=== PATIENT | male | born 1965 | race Caucasian/White ===

== ENCOUNTER 2017-11-20 12:06 | Inpatient (IN) | payer BC, OTHER ==
[~2017-11-20] VITALS: Ht 175.3 cm; Wt 83.0 kg
--- NOTE | 2017-11-20 13:00 | NUR ---
PRE ADMISSION Patient at intake office, 52 year old male, appears intoxicated, noted with flushed skin and smell of alcohol on breath. bp: 125/75 hr: 109, t: 98.4, r: 16 o2 sat: 99% room air. Patient is verbally responsive and able to make needs known, is alert and oriented x4. Denies any allergies. Reports he is here to detox off of alcohol. Reports consuming vodka 750ml daily for the past month, last consumed 750ml of vodka on 11/20/2016 beginning boot trimmer. Denies any history of seizures. Denies any past medical history. Patient was educated regarding unit policies and procedures with good verbal understanding.
--- NOTE | 2017-11-20 13:23 | NUR ---
ADMISSION Patient arrived to [facility] unit at 1323, patient noted with steady gait. Patients body search completed by male intake staff, no contraband found. Body assessment completed by staff nurse, patient skin is intact, noted with bruise on right rib cage area approximately 2cmx 1cm. Per patient he fell down yesterday and hurt himself. Patients skin is intact, no breakdown was noted on body. Patient is 5 feet 9 inches tall and weighs 183 lbs on standing scale. Patient was oriented to unit and to room, education regarding call light use was provided with good verbal understanding. Patients fall and seizure precautions were in place and to be observed at all times. patient denies any drug or food allergies. Patient currently is intoxicated, appears flushed and has alcohol breath, Patient reports substance use of: etoh. Reports began drinking alcohol since the age of 12. Recently patient reports he relapsed one month ago. since then has been consuming 750ml of vodka on a daily basis for one month, last drank was 45 minutes prior to admission, reports since the morning consumed 750ml of vodka. patient reports also "occasionally" smoking marijuana, last smoked 2 days ago, unknown amount. Patient reports his longest period of sobriety was for 8 months some time in 2017. Reports treatment history of: [facility] for 60 days 3 months ago. Upon leaving [facility] in [place], patient remained sober for 30 days (September 2017-October 2016)then relapsed 30 days ago. Patient did not bring any home medications with him but reports he has been taking: Effexor XR 75mg daily for anxiety. Patient denies any pre existing medical or psychiatric conditions. Patient denies any history of seizures. Patient reports his primary care physician is located in [facility], Dr. Engle. Patients pupils are equal and reactive to light, 3mm, patient wears glasses. Patient abdomen is soft and non distended, bowel sounds heard in all quadrants. Patients respirations are even and unlabored, no SOB, lungs clear upon auscultation. Patient currently presenting with: tremors, sweats, anxiety, agitation with admitting ciwa score of: 7. Patient was seen and examined by Dr. Thomas, admitting orders were in put. Safety measures in place. call light with in reach. will continue to monitor closely.
[2017-11-20] MEDS ORDERED: ONDANSETRON ODT 4 MG TAB.RAPDIS SL PRN (13:45)
[2017-11-20] MEDS ORDERED: LORAZEPAM 2 MG/1 ML VIAL IM PRN (13:45)
[2017-11-20] MEDS ORDERED: MAGNESIUM HYDROXIDE 30 ML LIQUID UDC PO PRN (13:45)
[2017-11-20] MEDS ORDERED: LORAZEPAM 1 MG TABLET PO PRN ×2 (13:45)
[2017-11-20] MEDS ORDERED: IBUPROFEN 400 MG TABLET PO PRN (13:45)
[2017-11-20] MEDS ORDERED: ACETAMINOPHEN 325 MG TABLET PO PRN (13:45)
[2017-11-20] MEDS ORDERED: DICYCLOMINE HCL 20 MG TABLET PO PRN (13:45)
[2017-11-20] MEDS ORDERED: LOPERAMIDE HCL 2 MG CAPSULE PO PRN ×2 (13:45)
[2017-11-20] MEDS ORDERED: MAG HYDROX/AL HYDROX/SIMETH 30 ML LIQUID UDC PO PRN (13:45)
[2017-11-20] MEDS ORDERED: ONDANSETRON 4 MG/2 ML VIAL IM PRN (13:45)
[2017-11-20] MEDS ORDERED: MIRALAX 17 GM POWD.PACK PO PRN (13:45)
[2017-11-20] MEDS ORDERED: VENL75CA56 PO (14:42)
[2017-11-20 14:46] LABS: *AMPHETAMINE, URINE NEGATIVE (NEGATIVE); *BARBITURATE, URINE NEGATIVE (NEGATIVE); *CANNABINOID, URINE POSITIVE (NEGATIVE); *COCCAINE, URINE NEGATIVE (NEGATIVE); *OPIATE, URINE NEGATIVE (NEGATIVE); *PHENCYCLIDINE SCREEN,URINE NEGATIVE (NEGATIVE)
--- NOTE | 2017-11-20 15:00 | NUR ---
+ UDS BZO patient urine drug screen positive for benzodiazepine. Per patient reported that he took a quarter of unknown strength of possibly Xanax this morning. Per patient it was a one time thing and does not that any benzodiazepines. MD aware.
[2017-11-20] MEDS ORDERED: THIAMINE HCL 200 MG/2 ML VIAL IM ONE (15:28)
[2017-11-20 15:30] LABS: BASOPHILS % (AUTO) 0.9 % (0.0-2.0); EOSINOPHILS # (AUTO) 0.2 K/uL (0.0-0.7); EOSINOPHILS % (AUTO) 3.8 % (0.0-7.0); HEMATOCRIT 40.6 % (36.7-47.1); HEMOGLOBIN 13.7 g/dL (12.5-16.3); LYMPHOCYTES # (AUTO) 1.7 K/uL (20.0-40.0); LYMPHOCYTES % (AUTO) 36.1 % (20.5-51.5); MEAN CORPUSCULAR HEMOGLOBIN 30.2 uug (23.8-33.4); MEAN CORPUSCULAR HGB CONC 34 g/dL (32.5-36.3); MEAN CORPUSCULAR VOLUME 89.1 fL (73.0-96.2); MONOCYTES # (AUTO) 0.5 K/uL (2.0-10.0); NEUTROPHILS # (AUTO) 2.3 K/uL (1.8-8.9); NEUTROPHILS % (AUTO) 49.2 % (38.5-71.5); PLATELET COUNT (AUTO) 139 K/uL (152-348); RED BLOOD CELL COUNT(AUTO) 4.55 MIL/uL (4.06-5.63); WHITE BLOOD COUNT (AUTO) 4.8 K/uL (3.6-10.2)
[2017-11-20 15:37] LABS: BILIRUBIN,TOTAL 0.3 mg/dL (0.2-1.0); CREATININE 0.9 mg/dL (0.6-1.3); MAGNESIUM 1.7 mg/dL (1.8-2.4); POTASSIUM 3.6 mmol/L (3.5-5.1); TOTAL PROTEIN, SERUM 6.8 g/dL (6.4-8.2)
[2017-11-20 16:09] VITALS: BP 123/75
[2017-11-20] MEDS: VENLAFAXINE XR 75 MG CAP.SR.24H PO SCH (16:12)
[2017-11-20] MEDS: LORAZEPAM 1 MG TABLET PO SCH ×2 (16:12→21:19)
[2017-11-20] MEDS ORDERED: MAGNESIUM OXIDE 400 MG TABLET PO ONE (16:45)
--- NOTE | 2017-11-20 18:59 | NUR ---
END OF SHIFT Patient alert and oriented x4, compliant with plan of care. Admitted during shift at 1323, continues under very close observation with admitting Dx: etoh withdrawal. Patient presenting with: tremors, diaphoresis, clammy skin, anxiety, and agitation, current ciwa score of: 12. Noted with worried mood, and flat affect. Administered vitamin b1 injection as ordered. Replaced magnesium as per MD orders. Provided with calm and quiet environment. Educated patient on medication regimen. Encouraged increase fluid intake, food preferences. Fall and seizure precautions observed and in place. Patient endorsed to salesperson surgical appliances nurse, all pertinent information discussed.
--- NOTE | 2017-11-20 19:15 | NUR ---
START OF SHIFT NOTE : Pt is a 52 y/o male admitted to [facility] for ETOH/VODKA withdrawal on 11/19/2017, pt. also use Meth and ETOH occasionally; Pt. will be placed 4 day Ativan taper on 11/21/2017 , he has one time Ativan 2mg PO dose in the evening. CIWA=12 at 16:00, No PRN given during a day shift. Pt. appears pale, diaphoretic, visible tremor, anxious with a sad face expression. He complains of appetite loss, insomnia, difficulty falling asleep, increased level of anxiety, 6/10. Safety measures in place : bed on lowest position with side rails x2 up for safety, call light within reach. Will continue to monitor closely and offer help.
[2017-11-20 20:00] VITALS: BP 137/84
--- NOTE | 2017-11-20 21:00 | NUR ---
PRN BENADRYL Pt. complains of insomnia. PRN BENADRYL given as ordered. Safety measures in place : bed on lowest position with side rails x2 up for safety, call light within reach. Will continue to monitor closely and offer help.
[2017-11-20] MEDS: diphenhydrAMINE 50 MG CAPSULE PO PRN (21:19)
--- NOTE | 2017-11-20 22:00 | NUR ---
RE-ASSESSMENT WALDEMAR Pt. is sleeping, RR=16 , unlabored and even. Safety measures in place : bed on lowest position with side rails x2 up for safety, call light within reach. Will continue to monitor closely and offer help.
[2017-11-21 04:00] VITALS: BP 145/91
--- NOTE | 2017-11-21 06:29 | NUR ---
END OF SHIFT NOTE : Pt is a 52 y/o male admitted to [facility] for ETOH/VODKA withdrawal on 11/19/2017, pt. also use Meth and ETOH occasionally; Pt. will be placed 4 day Ativan taper on 11/21/2017 , Pt. is compliant with a TX plan, PRN given during shift supervisor melting : BENADRYL . CIWA taken when pt. was awake, last CIWA= 5-6 at 04:00. Hyhdbn=431 , voided x2 , slept=11 hours. Safety measures in place : bed on lowest position with side rails x2 up for safety, call light within reach. Will continue to monitor closely and offer help.
--- NOTE | 2017-11-21 07:30 | NUR ---
START OF SHIFT Pt 52 y/o male admitted for etoh withdrawal. Pt received in room on bed with eyes closed resting, but easily arousable to name. Pt alert and oriented to name, place, and time. Perrla. Skin warm and moist to touch. Respirations even and unlabored. Bilateral hand gross tremors noted. Pt with perspiration noted on face. It was reported that pt slept for 11 hours last night. Bed on lowest position with side rails x2 up for safety. Call light within reach. No distress noted at this time.
[2017-11-21 08:00] VITALS: BP 150/96
[2017-11-21] MEDS: FOLIC ACID 1 MG TABLET PO SCH (08:28)
[2017-11-21] MEDS: THIAMINE HCL 100 MG TABLET PO SCH (08:28)
[2017-11-21] MEDS: MULTIVITAMINS,THERAPEUTIC TABLET PO SCH (08:28)
[2017-11-21] MEDS: CLONIDINE HCL 0.1 MG TABLET PO PRN (08:28)
[2017-11-21] MEDS: VENLAFAXINE XR 75 MG CAP.SR.24H PO SCH (08:28)
[2017-11-21] MEDS: LORAZEPAM 1 MG TABLET PO SCH ×3 (08:28→21:55)
--- NOTE | 2017-11-21 08:28 | NUR ---
PRN Pt with er=464/92. Catapres po prn per MD order given and tolerated well.
[2017-11-21] MEDS ORDERED: INFLUENZA VACCINE 2017-2018 0.5 ML DISP.SYRIN IM ONE (09:00)
[2017-11-21] MEDS ORDERED: PNEUMOCOCCAL 23-VAL P-SAC VAC 0.5 ML VIAL IM ONE (09:00)
[2017-11-21] MEDS ORDERED: TUBERCULIN,PURIF.PROT.DERIV. 5 TU/0.1 ML TEST ID ONE (09:00)
--- NOTE | 2017-11-21 09:28 | NUR ---
PRN EVAL pt jn=391/88
[2017-11-21 12:00] VITALS: BP 148/89
[2017-11-21 12:09] LABS: HEPATITIS B SURFACE AG Negative (Negative)
--- NOTE | 2017-11-21 13:00 | NUR ---
BP Pt with ql=698/89. MD aware. Addendum: 11/21/17 at 1727 by HIGINIO FLORES RN MD aware with new order for amlodipine po per MD order.
[2017-11-21] MEDS ORDERED: hydrALAZINE HCL 50 MG TABLET PO PRN (13:30)
[2017-11-21] MEDS: AMLODIPINE 5 MG TABLET PO SCH (14:16)
[2017-11-21 16:00] VITALS: BP 124/79
--- NOTE | 2017-11-21 19:10 | NUR ---
END OF SHIFT Pt 52 y/o male admitted for medically supervised withdrawal. Pt appears disheveled and unkempt. Pt alert and oriented to name, place, and time. Perrla. Skin warm and moist to touch. Respirations even and unlabored. Bilateral hand tremors noted throughout the day. Pt with sad affect noted. CIWA= 10@ 0800, 9@1200, and 9@1600. Pt observed isolative to room throughout the day and with minimal peer interaction noted. Pt did attend group activity. Pt was seen by MD today. Pt is on a 4 day ativan taper and is currently on day 2. Pt medication compliant and tolerated well. No ASE noted. Pt was given catapres po prn per MD order this morning for ji=742/96, effective iq=691/90. Bed on lowest position with side rails x 2 up for safety. Call light within reach. No distress noted at this time.
--- NOTE | 2017-11-21 19:15 | NUR ---
START OF SHIFT NOTE : Pt is a 52 y/o male admitted to [facility] for ETOH/VODKA withdrawal on 11/19/2017, pt. also use Meth and ETOH occasionally; Pt. will be placed 4 day Ativan taper on 11/21/2017 , he has one time Ativan 2mg PO dose in the evening. CIWA=12 at 16:00, PRN Catapres given during a day shift. Pt. appears pale, visible tremor, anxious. He complains of appetite loss, difficulty falling asleep, increased level of anxiety, 4/10, insomnia. Safety measures in place : bed on lowest position with side rails x2 up for safety, call light within reach. Will continue to monitor closely and offer help.
[2017-11-21 20:00] VITALS: BP 114/75
[2017-11-21] MEDS: GABAPENTIN 100 MG CAPSULE PO SCH (21:55)
[2017-11-21] MEDS: diphenhydrAMINE 50 MG CAPSULE PO PRN (21:55)
--- NOTE | 2017-11-22 06:15 | NUR ---
END OF SHIFT NOTE : Pt is a 52 y/o male admitted to [facility] for ETOH/VODKA withdrawal on 11/19/2017, pt. also use Meth and ETOH occasionally; Pt. placed 4 day Ativan taper on 11/21/2017 , Pt. is compliant with a TX plan, PRN given during laser machine operator : BENADRYL. CIWA taken when pt. was awake, last CIWA= 6 at 04:00, pt. states he slept good. Intake= 500ml , voided x12 , slept= 10 1/2 hours. Safety measures in place : bed on lowest position with side rails x2 up for safety, call light within reach. Will continue to monitor closely and offer help.
--- NOTE | 2017-11-22 07:30 | NUR ---
START OF SHIFT Pt 52 y/o male admitted for medically supervised withdrawal. Pt received in room awake. Pt anxious and restless. Pt with pressured speech noted. Empty open bottles of drinks noted in room on the bedside shelf. Perrla. Pt alert and oriented to name, place, and time. Respirations even and unlabored. Bilateral hand tremors noted. Last ciwa 6 @0400 reported. It was reported that pt slept for 10.5 hours last night. Pt is on a 4 day ativan taper on the day 2. Bed on lowest position with side rails x2 up for safety. Call light within reach.
[2017-11-22 08:00] VITALS: BP 160/120
--- NOTE | 2017-11-22 08:00 | NUR ---
NSG ENTRY Pt anxious with bilateral hand tremors, and appears with flushed face. Pt states, " I'm ready to go! I don't need to be here anymore". Explained risks of not completing treatment. Pt still insisted that he is okay to go home. Charge nurse , DON, and YOKE PRESSER child care supervisor made aware of pt wanting to leave.
[2017-11-22] MEDS: CLONIDINE HCL 0.1 MG TABLET PO PRN (08:32)
[2017-11-22] MEDS: VENLAFAXINE XR 75 MG CAP.SR.24H PO SCH (08:32)
[2017-11-22] MEDS: MULTIVITAMINS,THERAPEUTIC TABLET PO SCH (08:32)
[2017-11-22] MEDS: GABAPENTIN 100 MG CAPSULE PO SCH (08:32)
[2017-11-22] MEDS: FOLIC ACID 1 MG TABLET PO SCH (08:33)
[2017-11-22] MEDS: THIAMINE HCL 100 MG TABLET PO SCH (08:33)
[2017-11-22] MEDS: AMLODIPINE 5 MG TABLET PO SCH (08:33)
--- NOTE | 2017-11-22 08:36 | NUR ---
PRN Pt with li=229/120. Catapres po prn per MD order given and tolerated well.
--- NOTE | 2017-11-22 08:41 | NUR ---
MD Communication: Patient presents with agitation, inability to sleep, complaints of loud noise, and noted with gross tremor and diaphoresis. CIWA is 22. Dr Thomas made aware and new order received for Ativan 2mg PO x1 now. Order noted, repeated, and entered on behalf of Dr hTomas as he is presently without computer access. Primary nurse made aware.
[2017-11-22] MEDS ORDERED: LORAZEPAM 1 MG TABLET PO ONE (08:45)
--- NOTE | 2017-11-22 08:49 | NUR ---
ONE TIME Pt with ciwa=22. aware with new order for ativan 2mg po x1 dose, noted and carried out.
[2017-11-22] MEDS ORDERED: LORAZEPAM 1 MG TABLET PO SCH (09:00)
--- NOTE | 2017-11-22 09:05 | NUR ---
Therapist prompt client to attend groups today.
[2017-11-22 10:22] VITALS: BP 151/101
--- NOTE | 2017-11-22 10:50 | NUR ---
AMA Pt was seen by . explained risks for not completing treatment. Pt still wants to AMA. Pt denies any SI/HI at this time. Resources list provided to pt. Home medications and belongings returned to pt. Pt education on risk of not completing treatment. Pt left AMA.
[2017-11-23] MEDS ORDERED: LORAZEPAM 1 MG TABLET PO SCH (09:00)
[2017-11-24] MEDS ORDERED: LORAZEPAM 1 MG TABLET PO SCH (09:00)
== END 2017-11-22 10:50 | disposition left against medical advice (07) | DRG 894 ==
LOC: SRC 12:45
PROVIDERS: ADMIT Internal Medicine; ATTEND Internal Medicine
PROC: HZ2ZZZZ Detoxification Services for Substance Abuse Treatment (ICD-10-PCS; principal; 2017-11-20)
PROC: HZ51ZZZ Individual Psychotherapy for Substance Abuse Treatment, Behavioral (ICD-10-PCS; 2017-11-21)
DX: F10.232 Alcohol dependence with withdrawal with perceptual disturbance (principal); D69.6 Thrombocytopenia, unspecified; I15.9 Secondary hypertension, unspecified; F33.1 Major depressive disorder, recurrent, moderate; K70.10 Alcoholic hepatitis without ascites; E83.42 Hypomagnesemia; F41.9 Anxiety disorder, unspecified; Z81.1 Family history of alcohol abuse and dependence; Z82.49 Family history of ischemic heart disease and other diseases of the circulatory system; Y90.5 Blood alcohol level of 100-119 mg/100 ml; F12.10 Cannabis abuse, uncomplicated; Z91.19 Patient's noncompliance with other medical treatment and regimen; F13.90 Sedative, hypnotic, or anxiolytic use, unspecified, uncomplicated
CPT/HCPCS: 36415; 80307; 80346; 80349; 83735; 85025; 86580; 86592; 86705; 86803; 87340; 87806; 90686; 90732; A4663; G0480; J3411; Q0163